=== PATIENT | female | born 1960 | race Caucasian/White ===

== ENCOUNTER 2024-02-16 21:05 | Emergency (ER) | payer OTHER, SELFPAY ==
[2024-02-16 21:48] LABS: Absolute Basophils 0.1 K/uL (0-0.5); Absolute Eosinophils 0.1 K/uL (0-0.5); Absolute Lymphocytes (CBC) 1.9 K/uL (0.7-4.9); Absolute Monocytes 0.8 K/uL (0.1-1.3); Absolute Neutrophil 9.6 K/uL (1.8-8.0); Basophils % 0.5 % (0-1.3); Eosinophils % 0.8 % (0-4.4); Hematocrit 37.5 % (36.0-45.0); Hemoglobin 11.9 g/dL (12.0-15.0); Lymphocytes % 15.4 % (15.3-44.8); MCH 28.1 pg (27.0-35.0); MCHC 31.6 g/dL (32.0-36.0); MCV 88.9 fL (80-100); MPV 9.2 fL (7.6-11.3); Monocytes % 6.6 % (3.3-12.3); Neutrophils % 76.7 % (41.7-73.7); Platelets 178 thou/uL (152-406); RBC Red Blood Cell Count 4.22 M/uL (3.86-4.86); Red Cell Distribution Width 15.8 % (12.1-15.2)
[2024-02-16 21:50] LABS: PT Prothrombin Time 11.2 SECONDS (9.4-12.5); PTT, Activated Partial Thromb 27.9 SECONDS (24.3-36.9); Protime INR 1.02
[2024-02-16] MEDS ORDERED: MULTIVITAMINS 10 ML VIAL (INJ) IV ONE (21:51)
[2024-02-16] MEDS ORDERED: NA CHLORIDE 0.9% 2,000 ML ONE (21:51)
[2024-02-16] MEDS ORDERED: THIAMINE 200 MG/2 ML INJ ONE (21:51)
[2024-02-16 22:16] LABS: ALT/SGPT 39 U/L (13-56); Albumin 3.3 g/dL (3.4-5.0); Alkaline Phosphatase 86 U/L (45-117); Anion Gap 9.4 mEq/L (5.0-15.0); BUN Blood Urea Nitrogen 13 mg/dL (7-18); Bicarbonate 23 mEq/L (21-32); Bilirubin Total 0.3 mg/dL (0.2-1.0); Globulin 3.2 g/dL (2.3-3.5); Glomerular Filtration Rate 72 ml/min (=/>90); Glucose Level 208 mg/dL (74-106); Protein, Total 6.5 g/dL (6.4-8.2); Sodium Level 138 mEq/L (136-145)
[2024-02-16 22:18] LABS: AST/SGOT 19 U/L (15-37); Bilirubin Direct < 0.2 mg/dL (0-0.2); Bilirubin Indirect, Calculated 0.1 mg/dL (0.2-0.8); Potassium 4.4 mEq/L (3.5-5.1)
[2024-02-16 22:31] LABS: Specific Gravity 1.009 (1.005-1.030); Sqamous Epithelial <5 /HPF (None Seen); Urine Bacteria <20 /HPF (<20); Urine Bilirubin NEGATIVE (Negative); Urine Blood Trace (Negative); Urine Clarity Turbid (Clear); Urine Color Light-Yellow (Yellow); Urine Culture Reflex Order NOT NEEDED; Urine Glucose TRACE (Negative); Urine Ketones NEGATIVE (Negative); Urine Microscopic Reflex YN ORDER UMIC; Urine Nitrite NEGATIVE (Negative); Urine Protein NEGATIVE (Negative); Urine RBC <5 /HPF (None Seen); Urine Urobilinogen Normal (Normal)
[2024-02-16 22:40] LABS: Barbiturates NEGATIVE (NEGATIVE); Benzodiazepines NEGATIVE (NEGATIVE); Cocaine NEGATIVE (NEGATIVE); METHAMPHETAM NEGATIVE (NEGATIVE); Methadone NEGATIVE (NEGATIVE); Opiates NEGATIVE (NEGATIVE); Phencyclidine NEGATIVE (NEGATIVE); THC Cannibis NEGATIVE (NEGATIVE)
[2024-02-16] MEDS ORDERED: CIPROFLOXACIN HCL 500 MG TAB ONE (23:31)
[2024-02-16] MEDS ORDERED: CEFTRIAXONE 1000 MG/VIAL ONE (23:31)
--- NOTE | 2024-02-17 00:20 | ER ---
Nurse's Notes [facility] Name: Bonnie Richards Age: 63 yrs Sex: Female : 1960 Arrival Date: 02/16/2024 Time: 21:05 Bed 3 Private MD: Diagnosis: Restless legs syndrome;Encounter for observation for suspected toxic effect from ingested substance ruled out;Adjustment disorder with mixed disturbance of emotions and conduct;UTI/ Urinary tract infection, site not specified;Elevated white blood cell count Presentation: 02/15 21:14 Chief complaint: EMS states: patient's son last night. Patient stated she was tm6 frustrated and took 10-15 zanaflex. Coronavirus screen: Vaccine status: Patient reports being unvaccinated. Ebola Screen: Patient negative for fever greater than or equal to 101.5 degrees Fahrenheit, and additional compatible Ebola Virus Disease symptoms Patient denies exposure to infectious person. Patient denies travel to an Ebola-affected area in the 21 days before illness onset. No symptoms or risks identified at this time. Initial Sepsis Screen: Does the patient meet any 2 criteria? No. Patient's initial sepsis screen is negative. Does the patient have a suspected source of infection? No. Patient's initial sepsis screen is negative. Risk Assessment: Do you want to hurt yourself or someone else? Patient reports desire/thoughts of hurting themselves or someone else. Provider notified. Onset of symptoms was February 16, 2024. 21:14 Method Of Arrival: EMS: [facility] tm6 21:14 Acuity: EDUARDO 2 tm6 Triage Assessment: 21:16 General: Appears uncomfortable, Behavior is restless. Pain: Denies pain. EENT: No signs tm6 and/or symptoms were reported regarding the EENT system. Neuro: Level of Consciousness is awake, alert, confused, Oriented to person, place, Reports restless leg syndrome. Cardiovascular: Patient's skin is warm and dry. Respiratory: Airway is patent Respiratory effort is even, unlabored, Respiratory pattern is regular, symmetrical. GI: No signs and/or symptoms were reported involving the gastrointestinal system. Abdomen is round non-distended. : No signs and/or symptoms were reported regarding the genitourinary system. Derm: No signs and/or symptoms reported regarding the dermatologic system. Musculoskeletal: Reports restless leg syndrome. Historical: - Allergies: 21:16 Coconut; tm6 - PMHx: 21:16 Angina pectoris; Atrial fibrillation; Congestive heart failure; Deep vein thrombosis; tm6 Depressive disorder; factor 5 disorder; Hypercholesterolemia; Hypertensive disorder; Myocardial infarction; restless leg syndrome; stroke; - PSHx: 21:16 Unable to Obtain; tm6 - Immunization history:: Client reports having NOT received the Covid vaccine. - Infectious Disease History:: Denies. - Social history:: Smoking status: Patient reports the use of cigarette tobacco products, smokes two packs cigarettes per day. Patient/guardian denies using alcohol. - Family history:: not pertinent. Screenin/07 00:30 [facility] ED Fall Risk Assessment (Adult) History of falling in the last 3 months, tm6 including since admission No falls in past 3 months (0 pts) Confusion or Disorientation Yes (5 pts) Intoxicated or Sedated Yes (3 pts) Impaired Gait No (0 pts) Mobility Assist Device Used No (0 pt) Altered Elimination No (0 pt) Score/Fall Risk Level 3 or more points = High Risk Oriented to surroundings, Maintained a safe environment, Educated pt \\T\\ family on fall prevention, incl call for assistance when getting out of bed. Abuse screen: Denies threats or abuse. Denies injuries from another. Nutritional screening: No deficits noted. Tuberculosis screening: No symptoms or risk factors identified. Assessment: 02/15 21:25 Reassessment: CONTACTED POISON CONTROL CASE # [id number] ADJUNCT NURSING FACULTY SHERYL. STATES "PATIENT ha1 MAY EXPERIENCE LOW HR, LOW OXYGEN SATURATION, LETHARGIC. 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 CHECK TYLENOL LEVEL, CBC, AND BMP. ALSO, EKG NEEDS TO BE COMPLETE". 22:18 Reassessment: see triage assessment. tm6 23:19 General: Appears uncomfortable, Behavior is restless. Respiratory: Airway is patent ha1 Respiratory effort is even, unlabored, Respiratory pattern is regular, symmetrical. 02/16 00:00 Reassessment:. General: Appears in no apparent distress. Behavior is calm, cooperative. tm6 Pain: Denies pain. Neuro: Level of Consciousness is awake, alert, obeys commands, Oriented to person, place, time, situation. 00:00 Reassessment: DENIES SUICIDAL IDEATIONS. STATES" I JUST WANTED TO HAVE A GOOD SLEEP, I ha1 DID NOT MEAN TO KILL MYSELF.". 01:00 Reassessment: Patient appears in no apparent distress at this time. Patient and/or tm6 family updated on plan of care and expected duration. Pain level reassessed. Patient is alert, oriented x 3, equal unlabored respirations, skin warm/dry/pink. General: Appears in no apparent distress. Behavior is calm, cooperative. Pain: Denies pain. Neuro: Level of Consciousness is awake, alert, obeys commands, Oriented to person, place, time, situation. Respiratory: Airway is patent Respiratory effort is even, unlabored, Respiratory pattern is regular, symmetrical. Psych: 02/15 21:05 [place] Suicide Severity Screening: In the past month, have you wished you were tm6 or wished you could go to sleep and not wake up? Patient responds "No." "In the past month, have you actually had any thoughts of killing yourself?" Patient responds "no." "In your lifetime, have you ever done anything, started to do anything, or prepared to do anything to end your life?" Patient responds "yes." Patient reports suicidal intent occurred greater than 3 months prior. Subjective: Patient's mood is irritable, Delusions are denied, Hallucinations are denied. Objective: Patient is cooperative, irritable, Speech is normal, Affect is appropriate. Interventions: Patient placed in hospital gown. Searched person for dangerous items. Interventions: Removed personal items and placed in bag. Safety Checks: Personal items have not been removed. in trauma room, under medical observation Door is open. Visitors are present. zanaflex. Overdose: 21:05 [place] Suicide Severity Screening: "In the past month, have you wished you were tm6 or wished you could go to sleep and not wake up?" Patient responds "no." "In the past month, have you actually had any thoughts of killing yourself?" Patient responds "no." "In your lifetime, have you ever done anything, started to do anything, or prepared to do anything to end your life?" Patient responds "yes." Patient reports suicidal intent occurred greater than 3 months prior. Patient took 10-15 zanaflex. 02/16 01:12 [place] Suicide Severity Screening: "In the past month, have you actually had any tm6 thoughts of killing yourself?" Patient responds "yes." Based off client's responses, additional C-SSRS screening questions required. Vital Signs: 02/15 21:14 Temp 97.5(O); Weight 86.18 kg; Height 5 ft. 1 in. ; tm6 21:30 BP 120 / 75; Pulse 58; Resp 17 S; Pulse Ox 100% on 2 lpm NC; ha1 22:19 BP 162 / 90; Pulse 74; Resp 21; Pulse Ox 100% on R/A; tm6 23:27 BP 150 / 66; Pulse 48; Resp 17; Pulse Ox 100% on 2 lpm NC; ha1 23:36 BP 150 / 66; Pulse 65; Resp 18; Pulse Ox 100% on R/A; tm6 23:45 BP 154 / 77; Pulse 73; Resp 16; Temp 97.8(TE); Pulse Ox 100% on R/A; Pain 0/10; tm6 21:14 Body Mass Index 35.90 (86.18 kg, 154.94 cm) tm6 23:45 Pain Scale: Adult tm6 ED Course: 21:14 Patient arrived in ED. tm6 21:14 Tim Watson MD is Attending Physician. [facility] 21:16 Triage completed. tm6 21:16 Arm band placed on right wrist. tm6 21:16 Patient has correct armband on for positive identification. Placed in gown. Bed in low tm6 position. Call light in reach. Side rails up X2. Provided Education on: plan of care. Client placed on continuous cardiac and pulse oximetry monitoring. NIBP monitoring applied. case monitor on. Pulse ox on. NIBP on. Noise minimized. Lights dimmed. Warm blanket given. 21:16 Maintain EMS IV. Dressing intact. Good blood return noted. Site clean \\T\\ dry. Gauge \\T\\ tm 6 site: 20g L wrist. 22:18 Jazz Zazueta RN is Primary Nurse. tm6 23:57 US Extremity Venous W Compression Mark Anthony In Process Unspecified. EDMS 02/16 00:00 EKG done, by ED staff, reviewed by Tim Watson MD. tm6 00:11 Urine Culture Sent. ha1 01:12 No provider procedures requiring assistance completed. IV discontinued, intact, tm6 bleeding controlled, No redness/swelling at site. Pressure dressing applied. Administered Medications: 02/15 21:58 Drug: NS 0.9% IV 1000 ml IV at 1 bolus Per protocol; 1000 mL bolus Route: IV; Rate: 1 ha1 bolus; Site: right hand; 23:00 Follow up: Response: No adverse reaction; IV Status: Completed infusion; IV Intake: ha1 1000ml 21:58 Drug: Banana Bag - (Multivitamin IV 1 amp, NS 0.9% IV 1000 ml, Thiamine IV 100 mg, ha1 foLIC Acid IVPB 1 mg) IV at 250 ml/hr once Route: IV; Rate: 250 ml/hr; Site: right hand; 02/16 00:30 Follow up: Response: No adverse reaction; IV Status: Completed infusion; IV Intake: ha1 1000ml 02/15 23:50 Drug: Rocephin IV 1 grams IV at per protocol once; Given slow IV push per pharmacy ha1 instructions Route: IV; Rate: per protocol; Site: right hand; 02/16 00:10 Follow up: Response: No adverse reaction; IV Status: Completed infusion; IV Intake: [id number] 02/15 23:50 Drug: Ciprofloxacin PO 500 mg PO once Route: PO; ha1 02/16 00:10 Follow up: Response: No adverse reaction ha1 Medication: 01:03 VIS not applicable for this client. tm6 Intake: 02/15 23:00 IV: 1000ml; Total: 1000ml. ha1 02/16 00:10 IV: 50ml; Total: 1050ml. ha1 00:30 IV: 1000ml; Total: 2050ml. ha1 Outcome: 00:19 Discharge ordered by . krishna 00:55 Discharged to home ambulatory, with family, ha1 00:55 Condition: stable 00:55 Discharge instructions given to patient, family, Instructed on discharge instructions, follow up and referral plans. medication usage, Demonstrated understanding of instructions, follow-up care, medications, Prescriptions given X 1, 00:56 Patient left the ED. ha1 Signatures: Dispatcher [employer] EDTim Vicente MD MD cha Ayala, Heidy RN RN ha1 Jazz Zazueta RN RN tm6 Corrections: (The following items were deleted from the chart) : 01:12 Condition: stable tm6 ha1 01:27 01:12 Discharged to home ambulatory, with family, tm6 ha1 01:12 Discharge instructions given to patient, family, Instructed on discharge [facility] instructions, follow up and referral plans. medication usage, Demonstrated understanding of instructions, follow-up care, medications, Prescriptions given X 1, tm6 04:18 07/06 21:25 Reassessment: CONTACTED POISON CONTROL CASE # [id number] ADJUNCT NURSING FACULTY SHERYL. ha1 STATES "PATIENT MAY EXPERIENCE LOW HR, LOW OXYGEN SATURATION, LETHARGIC. 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 CHECK TYLENOL LEVEL, CBC, AND BMP. ALSO, EKG NEEDS TO BE DONE" ha1
--- NOTE | 2024-02-17 00:20 | EDPHYS ---
Physician Documentation [facility] Name: Bonnie Richards Age: 63 yrs Sex: Female : 1960 Arrival Date: 02/16/2024 Time: 21:05 Bed 3 Private MD: ED Physician Tim Watson HPI: 02/15 22:58 This 63 yrs old Female presents to ER via EMS with complaints of Overdose. krishna 22:58 The patient presents to the emergency department took xanaflex to sleep. Context: krishna Method: the patient has a confirmed or suspected ingestion. Associated signs and symptoms: Pertinent positives: anxiety, insomnia. Severity of symptoms: At their worst the symptoms were moderate in the emergency department the symptoms are unchanged. The patient has experienced similar episodes in the past, multiple times. Historical: - Allergies: 21:16 Coconut; tm6 - PMHx: 21:16 Angina pectoris; Atrial fibrillation; Congestive heart failure; Deep vein thrombosis; tm6 Depressive disorder; factor 5 disorder; Hypercholesterolemia; Hypertensive disorder; Myocardial infarction; restless leg syndrome; stroke; - PSHx: 21:16 Unable to Obtain; tm6 - Immunization history:: Client reports having NOT received the Covid vaccine. - Infectious Disease History:: Denies. - Social history:: Smoking status: Patient reports the use of cigarette tobacco products, smokes two packs cigarettes per day. Patient/guardian denies using alcohol. - Family history:: not pertinent. ROS: 22:58 Constitutional: Negative for fever, chills, and weight loss, Eyes: Negative for injury, krishna pain, redness, and discharge, ENT: Negative for injury, pain, and discharge, Neck: Negative for injury, pain, and swelling, Cardiovascular: Negative for chest pain, palpitations, and edema, Respiratory: Negative for shortness of breath, cough, wheezing, and pleuritic chest pain, Abdomen/GI: Negative for abdominal pain, nausea, vomiting, diarrhea, and constipation, Back: Negative for injury and pain, : Negative for injury, bleeding, discharge, and swelling, MS/Extremity: Negative for injury and deformity, Skin: Negative for injury, rash, and discoloration, Neuro: Negative for headache, weakness, numbness, tingling, and seizure, Psych: Negative for depression, anxiety, suicide ideation, homicidal ideation, and hallucinations, Allergy/Immunology: Negative for hives, rash, and allergies, Endocrine: Negative for neck swelling, polydipsia, polyuria, polyphagia, and marked weight changes, Hematologic/Lymphatic: Negative for swollen nodes, abnormal bleeding, and unusual bruising, Exam: 22:58 Constitutional: This is a well developed, well nourished patient who is awake, alert, krishna and in no acute distress. Head/Face: Normocephalic, atraumatic. Eyes: Pupils equal round and reactive to light, extra-ocular motions intact. Lids and lashes normal. Conjunctiva and sclera are non-icteric and not injected. Cornea within normal limits. Periorbital areas with no swelling, redness, or edema. ENT: Nares patent. No nasal discharge, no septal abnormalities noted. Tympanic membranes are normal and external auditory canals are clear. Oropharynx with no redness, swelling, or masses, exudates, or evidence of obstruction, uvula midline. Mucous membranes moist. Neck: Trachea midline, no thyromegaly or masses palpated, and no cervical lymphadenopathy. Supple, full range of motion without nuchal rigidity, or vertebral point tenderness. No Meningismus. Chest/axilla: Normal chest wall appearance and motion. Nontender with no deformity. No lesions are appreciated. Cardiovascular: Regular rate and rhythm with a normal S1 and S2. No gallops, murmurs, or rubs. Normal PMI, no JVD. No pulse deficits. Respiratory: Lungs have equal breath sounds bilaterally, clear to auscultation and percussion. No rales, rhonchi or wheezes noted. No increased work of breathing, no retractions or nasal flaring. Abdomen/GI: Soft, non-tender, with normal bowel sounds. No distension or tympany. No guarding or rebound. No evidence of tenderness throughout. Back: No spinal tenderness. No costovertebral tenderness. Full range of motion. Skin: Warm, dry with normal turgor. Normal color with no rashes, no lesions, and no evidence of cellulitis. MS/ Extremity: Pulses equal, no cyanosis. Neurovascular intact. Full, normal range of motion. Neuro: Awake and alert, GCS 15, oriented to person, place, time, and situation. Cranial nerves II-XII grossly intact. Motor strength 5/5 in all extremities. Sensory grossly intact. Cerebellar exam normal. Normal gait. Psych: Awake, alert, with orientation to person, place and time. Behavior, mood, and affect are within normal limits. 22:58 ECG was reviewed by the Attending Physician. 02/16 00:23 Psych: Behavior/mood is pleasant, cooperative, Affect is calm, Oriented to person, krishna place, time, Patient has no thoughts/intents to harm self or others. not homicidal , not suicidal, Judgement / Insight is normal. Memory is normal. Delusions/hallucinations are not present. Vital Signs: 02/15 21:14 Temp 97.5(O); Weight 86.18 kg; Height 5 ft. 1 in. ; tm6 21:30 BP 120 / 75; Pulse 58; Resp 17 S; Pulse Ox 100% on 2 lpm NC; ha1 22:19 BP 162 / 90; Pulse 74; Resp 21; Pulse Ox 100% on R/A; tm6 23:27 BP 150 / 66; Pulse 48; Resp 17; Pulse Ox 100% on 2 lpm NC; ha1 23:36 BP 150 / 66; Pulse 65; Resp 18; Pulse Ox 100% on R/A; tm6 23:45 BP 154 / 77; Pulse 73; Resp 16; Temp 97.8(TE); Pulse Ox 100% on R/A; Pain 0/10; tm6 21:14 Body Mass Index 35.90 (86.18 kg, 154.94 cm) tm6 23:45 Pain Scale: Adult tm6 MDM: 21:14 Patient medically screened. [facility] 23:03 Differential diagnosis: polypharmacy, over medication. Data reviewed: vital signs, [facility] nurses notes, EMS record, lab test result(s), EKG. Consideration of Admission/Observation Escalation of care including admission/observation considered. I considered the following discharge prescriptions or medication management in the emergency department Medications were administered in the Emergency Department. See MAR. Independent interpretation of the following test(s) in the Emergency Department EKG: See my EKG interpretation above. Test considered but Not performed: CT: no ct head. Historians other than the Patient: Daughter/Son: son well informred. Care significantly affected by the following chronic conditions: Hypertension, Congestive Heart Failure, Obesity. 02/15 21:15 Order name: Acetaminophen; Complete Time: 23:09 [facility] 02/15 21:15 Order name: Basic Metabolic Panel; Complete Time: 23:09 [facility] 02/15 21:15 Order name: CBC with Diff; Complete Time: 23:09 [facility] 02/15 21:15 Order name: ETOH Level; Complete Time: 23:09 [facility] 02/15 21:15 Order name: Hepatic Function; Complete Time: 23:09 [facility] 02/15 21:15 Order name: PT-INR; Complete Time: 23:09 [facility] 02/15 21:15 Order name: Ptt, Activated; Complete Time: 23:09 [facility] 02/15 21:15 Order name: Salicylate; Complete Time: 23:09 [facility] 02/15 21:15 Order name: Urinalysis w/ reflexes; Complete Time: 23:09 [facility] 02/15 21:15 Order name: Urine Drug Screen; Complete Time: 23:09 [facility] 02/15 23:09 Order name: US Extremity Venous W Compression Mark Anthony [facility] 02/15 21:15 Order name: EKG; Complete Time: 21:16 [facility] 02/15 21:15 Order name: EKG - Nurse/Tech; Complete Time: 23:18 [facility] 02/15 21:15 Order name: IV Saline Lock; Complete Time: 21:40 [facility] 02/15 21:15 Order name: Labs collected and sent; Complete Time: 21:40 [facility] 02/15 21:15 Order name: Suicide Screening ([place]); Complete Time: 23:18 [facility] EC:58 Rate is 59 beats/min. Rhythm is regular. QRS [place] is Normal. HI interval is normal. QRS krishna interval is normal. QT interval is normal. No Q waves. T waves are Normal. No ST changes noted. Clinical impression: Sinus bradycardia and No evidence of ischemia. Interpreted by me. Reviewed by me. Administered Medications: 21:58 Drug: NS 0.9% IV 1000 ml IV at 1 bolus Per protocol; 1000 mL bolus Route: IV; Rate: 1 ha1 bolus; Site: right hand; 23:00 Follow up: Response: No adverse reaction; IV Status: Completed infusion; IV Intake: ha1 1000ml 21:58 Drug: Banana Bag - (Multivitamin IV 1 amp, NS 0.9% IV 1000 ml, Thiamine IV 100 mg, ha1 foLIC Acid IVPB 1 mg) IV at 250 ml/hr once Route: IV; Rate: 250 ml/hr; Site: right hand; 02/16 00:30 Follow up: Response: No adverse reaction; IV Status: Completed infusion; IV Intake: ha1 1000ml 02/15 23:50 Drug: Rocephin IV 1 grams IV at per protocol once; Given slow IV push per pharmacy ha1 instructions Route: IV; Rate: per protocol; Site: right hand; 02/16 00:10 Follow up: Response: No adverse reaction; IV Status: Completed infusion; IV Intake: [id number] 02/15 23:50 Drug: Ciprofloxacin PO 500 mg PO once Route: PO; ha1 02/16 00:10 Follow up: Response: No adverse reaction ha1 Disposition Summary: 02/17/24 00:19 Discharge Ordered Notes: Location: Home krishna Problem: new krishna Symptoms: have improved krishna Condition: Stable krishna Diagnosis - Restless legs syndrome krishna - Encounter for observation for suspected toxic effect from ingested substance ruled krishna out - Adjustment disorder with mixed disturbance of emotions and conduct krishna - UTI/ Urinary tract infection, site not specified krishna - Elevated white blood cell count krishna Followup: krishna - With: Private Physician - When: 2 - 3 days - Reason: Recheck today's complaints, Continuance of care, Re-evaluation by your physician Discharge Instructions: - Discharge Summary Sheet krishna - Adjustment Disorder, Adult krishna - Dysuria krishna - Urinary Tract Infection, Adult krishna - Urinary Tract Infection, Adult, [id number] krishna - Restless Legs Syndrome krishna - Nontoxic Ingestion, Adult krishna Forms: - Medication Reconciliation Form krishna - Antibiotic Education krishna - Prescription Opioid Use krishna - Patient Portal Instructions krishna - Leadership Thank You Letter [facility] Prescriptions: - Cipro 250 mg Oral tablet - take 1 tablet ORAL route every 12 hours; 14 tablet; Refills: 0, Product krishna Selection Permitted Signatures: Dispatcher [employer] EDTim Vicente MD MD cha Ayala, Heidy, RN RN ha1 Jazz Zazueta RN RN tm6 Corrections: (The following items were deleted from the chart) 02/15 21:16 21:16 ACETAMINOPHEN+C.LAB.BRZ ordered. EDMS EDMS 21:16 21:16 BASIC METABOLIC PANEL+C.LAB.BRZ ordered. EDMS EDMS 21:16 21:16 CBC+H.LAB.BRZ ordered. EDMS EDMS 21:16 21:16 ETHANOL+C.LAB.BRZ ordered. EDMS EDMS 21:16 21:16 HEPATIC FUNCTION+C.LAB.BRZ ordered. EDMS EDMS 21:16 21:16 PROTIME (+INR)+COAG.LAB.BRZ ordered. EDMS EDMS 21:16 21:16 PTT, ACTIVATED+COAG.LAB.BRZ ordered. EDMS EDMS 21:16 21:16 SALICYLATE+C.LAB.BRZ ordered. EDMS EDMS 21:16 21:16 Urinalysis+U.LAB.BRZ ordered. EDMS EDMS 21:16 21:16 URINE DRUG SCREEN+UC.LAB.BRZ ordered. EDMS EDMS
[2024-02-17 01:36] VITALS: BP 150/66; TEMP 97.5; O2SAT 100
--- NOTE | 2024-02-19 09:04 | EKG ---
Test Date: 2024-02-16 Test Time: 22:10:01 Resort Manager: RACHELE MEASUREMENT RESULTS: Intervals: Rate: 59 PA: 168 QRSD: 78 QT: 472 QTc: 467 [place]: P: 51 PA: 168 QRS: 43 T: 59 INTERPRETIVE STATEMENTS: Sinus bradycardia Otherwise normal ECG No previous ECG available for comparison Electronically Signed On 02-19-24 09:03:00 CDT by Bola Sandhu
--- NOTE | 2024-02-19 11:16 | RAD REPORT ---
EXAM DESCRIPTION: US - Extrem Venous W Compress Mark Anthony - 02/17/2024 12:14 am US Bilateral Lower Extremity Venous Duplex Doppler CLINICAL HISTORY: Pain COMPARISON: None TECHNIQUE: Grayscale, color Doppler, duplex Doppler, spectral Doppler images and analysis with compr ession and augmentation of right and left lower extremity veins. FINDINGS: Right and Left common femoral, greater saphenous, femoral, deep (profunda) femoral, poplit eal, posterior tibial veins unremarkable without evidence of clot. IMPRESSION: No sonographic evidence of right or left lower extremity DVT. Lectronically signed by: Can Solorio MD 02/17/2024 12:06 AM CDT RP Due to temporary technical issues with the PACS/Fluency reporting system, reports are being signed by the in house radiologist without review as a courtesy to ensure prompt reporting. The interpreting r adiologist is fully responsible for the content of the report.
== END 2024-02-17 00:56 | disposition home or self-care (01) ==
LOC: ER 21:05
DX: Z03.6 Encounter for observation for suspected toxic effect from ingested substance ruled out (principal); G25.81 Restless legs syndrome
CPT/HCPCS: 36415; 80048; 80076; 80143; 80179; 80307; 81001; 82077; 85025; 85610; 85730; 93005; 93970; 96365; 96366; 99285; J0696; J3411; J7030